=== PATIENT | female | born 1935 | race Caucasian/White ===

== ENCOUNTER 2017-05-05 05:38 | Inpatient (IN) ==
[2017-05-05] MEDS ORDERED: VANCOMYCIN INJ 1,000 MG in SODIUM CHLORIDE 0.9% 250 ML IV ONE (06:00)
--- NOTE | 2017-05-05 06:52 | History and Physical Update ---
History and Physical Update - History and Physical H&P was reviewed, the patient examined and there: are no changes in the patients condition since last H&P was completed.
[2017-05-05] MEDS ORDERED: SODIUM CHLORIDE 0.9% 100 ML IV ONE ×2 (06:54→11:13)
[2017-05-05] MEDS ORDERED: VANCOMYCIN 1,000 MG VIAL ONE (06:54)
[2017-05-05] MEDS ORDERED: ceFAZolin 1,000 MG VIAL ONE (06:54)
[2017-05-05] MEDS ORDERED: TRANEXAMIC ACID 1,000 MG/10 ML VIAL IV ONE (08:57)
[2017-05-05] MEDS ORDERED: LABETALOL 100 MG/20 ML VIAL IV ONE (09:00)
[2017-05-05] MEDS ORDERED: MORPHINE 10 MG/10 ML VIAL ONE (09:00)
[2017-05-05] MEDS ORDERED: PROPOFOL 200 MG/20 ML VIAL IV ONE (09:00)
[2017-05-05] MEDS ORDERED: ACETAMINOPHEN 1,000 MG/100 ML VIAL IV ONE (09:01)
[2017-05-05] MEDS: LACTATED RINGERS 1,000 ML IV SCH ×3 (09:29→11:19)
[2017-05-05] MEDS ORDERED: TEMAZEPAM 7.5 MG CAPSULE PO PRN (09:39)
[2017-05-05] MEDS ORDERED: PROMETHAZINE 25 MG/1 ML VIAL IM PRN (09:39)
[2017-05-05] MEDS ORDERED: diphenhydrAMINE CAP 25 MG CAPSULE PO PRN (09:39)
[2017-05-05] MEDS ORDERED: MAGNESIUM HYDROXIDE SUSP 30 ML UDCUP PO PRN (09:39)
[2017-05-05] MEDS ORDERED: BISACODYL 10 MG SUPP RECTAL PRN (09:39)
[2017-05-05] MEDS ORDERED: MORPHINE 2 MG/1 ML SYRINGE IV PRN ×2 (09:39→13:50)
[2017-05-05] MEDS ORDERED: ONDANSETRON 4 MG/2 ML VIAL IV PRN (09:39)
[2017-05-05] MEDS ORDERED: LACTULOSE 20 GM/30 ML UDCUP PO PRN (09:39)
[2017-05-05] MEDS ORDERED: NALOXONE 0.4 MG/ML VIAL IV PRN (09:39)
[2017-05-05] MEDS ORDERED: clonazePAM 0.5 MG TABLET PO PRN (09:42)
[2017-05-05] MEDS ORDERED: diphenhydrAMINE 50 MG/1 ML VIAL IV PRN (10:25)
[2017-05-05] MEDS ORDERED: hydrOXYzine HCL 25 MG/1 ML VIAL IM PRN (10:25)
--- NOTE | 2017-05-05 11:10 | Anesthesia Post-Op ---
Anesthesia Post OP - Post Ansesthetic Evaluation Patient seen in post op: Yes Resp: within normal limits CV: within normal limits Mental: within normal limits Temp: within normal limits [id number]: within normal limits Nausea and Vomiting: within normal limits Pain: within normal limits
[2017-05-05] MEDS ORDERED: fentaNYL 100 MCG/2 ML VIAL ONE (11:12)
[2017-05-05] MEDS ORDERED: MIDAZOLAM 2 MG/2 ML VIAL ONE (11:13)
[2017-05-05] MEDS ORDERED: LACTATED RINGERS 1,000 ML IV ONE (11:13)
--- NOTE | 2017-05-05 11:20 | XRay Report ---
XR hip OR LT Clinical Information: Left total hip arthroplasty Comparison: None available Findings: Post surgical changes of left total hip arthroplasty are noted. Hardware appears intact with no evidence of acute postsurgical complication. Minimal overlying soft tissue gas and soft tissue thickening appears appropriate for postsurgical state. No radiopaque foreign bodies are identified in the soft tissues. Impression: Postsurgical changes without evidence of acute complication. PROCEDURE INTERPRETED AT [facility] DEPARTMENT OF RADIOLOGY Final Report Signed by: Leif Valenzuela
[2017-05-05 13:31] LABS: Calcium 8.9 MG/DL (8.5-10.1); Osmolality,Calculated 285.1 MOS/KG (273-304); Potassium 4.9 MMOL/L (3.5-5.1)
[2017-05-05] MEDS: ceFAZolin 2,000 MG in PREMIX 1 EACH IV SCH ×2 (13:32→21:21)
[2017-05-05] MEDS: COENZYME Q10 100 MG CAPSULE PO SCH (14:01)
[2017-05-05] MEDS: MORPHINE PCA 30 MG/30 ML SYRINGE IV SCH (14:10)
--- NOTE | 2017-05-05 15:32 | Pulmonology Progress Note ---
Pulmonary - PN: Subj Interval history: Patient is an 81-year-old white lady that comes in today for a left total hip replacement. She has significant degenerative arthritis. She is previously had a right hip replacement and a right knee replacement. She is a former smoker and has had previous breast cancer. She has been doing reasonably well without any increased shortness of breath or chest pain. She did well today with anesthesia. She is complaining of some mild nausea and says she is hungry. Otherwise she seems to be doing fairly well. Exam (Progress Note) - Constitutional Vitals: Period Temp Pulse Resp BP Sys/Millan Pulse Ox Last 24 Hr 97.0 F-98.4 F 46-59 12-20 100-178/42-93 95-100 General appearance: normal weight, no acute distress - Head Head exam: Present: normal inspection, normocephalic - Eye Eye exam: Present: EOMI. Absent: scleral icterus Pupils: Present: RACHEL - ENT ENT exam: Present: normal exam - Neck Neck exam: Present: normal inspection. Absent: lymphadenopathy, thyromegaly - Respiratory Respiratory exam: Present: clear to auscultation bilaterally. Absent: wheezes - Cardiovascular Cardiovascular exam: Present: regular rate and rhythm. Absent: gallop, systolic murmur - GI/Abdominal GI/Abdominal exam: Present: normal bowel sounds, soft. Absent: distended, organomegaly, tenderness - Extremities Exam Extremities exam: Present: other (The left upper leg is wrapped.). Absent: edema - Neurological Exam Neurological exam: Present: alert, oriented X3, CN II-XII intact - Psychiatric Psychiatric exam: Present: normal affect, normal mood - Skin Skin exam: Present: warm, dry Results - Labs CBC & BMP: 05/05/17 12:48 Assessment and Plan (1) Osteoarthritis of left hip Status: Acute Assessment and plan: Patient has had significant arthritis and comes in for hip replacement today. Current Visit: Yes (2) Status post total hip replacement, left Status: Acute Assessment and plan: Patient did well with surgery today and is not having any problems postop. Current Visit: Yes (3) Hypertension Status: Acute Assessment and plan: Patient's blood pressures under control and she is stable from a cardiopulmonary standpoint. Current Visit: Yes
[2017-05-05] MEDS ORDERED: PANTOPRAZOLE 40 MG TABLET PO SCH (16:30)
--- NOTE | 2017-05-05 17:30 | Orthopedic Progress Note ---
Orthopedics - Subjective Interval history: Comfortable mild nausea discussed neurovascular intact up in a.m. Exam - Constitutional Vitals: Period Temp Pulse Resp BP Sys/Millan Pulse Ox Last 24 Hr 97.0 F-98.4 F 46-73 12-20 100-178/42-93 95-100 Results - Labs CBC & BMP: 05/05/17 12:48
--- NOTE | 2017-05-05 17:39 | Operative Note ---
DATE: 05/05/2017 PREOPERATIVE DIAGNOSIS: OSTEOARTHRITIS, LEFT HIP. POSTOPERATIVE DIAGNOSIS: OSTEOARTHRITIS, LEFT HIP. OPERATIVE PROCEDURE: Left total hip. SURGEON: Shane Williamson Jr, MD. FAMILY [employer] SOCIAL WORK PROFESSOR: Dr. Jade. ANESTHESIA: Spinal. INDICATIONS: An 81-year-old white female with severe osteoarthritis, left hip. She has maximized co nservative treatment through the years related to her pain and has become unresponsive. She has a pr evious history of right total hip, which she has done very well. She presents today for elective lef t total hip. PROCEDURE IN DETAIL: The patient brought to the operating room and under spinal anesthetic placed in right lateral decubitus position, left hip and lower extremity were prepped and draped in the usual sterile manner. She received Ancef and Vancomycin preoperatively. A curvilinear incision was made o kyree the posterolateral aspect of the left hip. Sharp dissection was carried down through the skin an d subcutaneous tissue. The IT band and gluteus were split. The short rotators and capsule were refl ected off the back of the proximal femur for later repair. The head dislocated and resected. The ac etabulum was exposed, sequentially reamed up to 51 and a 52 cup press fit in place, secured with a si ngle screw and a 10-degree all polyethylene liner placed. The proximal femur was prepared for the ce mented stem ultimately selecting a size #3 DePuy Dougherty cemented stem. Trials selected either a 1.5 or a 5 head. After removal of the trial femur, the permanent implant was cemented in place. After t he cement hardened, the trials were then reused ultimately selecting a +5 for it equalized limb lengt h and provided the best stability. Wounds were then irrigated, hip re-dislocated. The permanent +5 head secured on the taper and relocated. Intraoperative film confirmed satisfactory position of the components. The wound was then closed over two 1/8th-inch Hemovac drain in a standard fashion using #1 Vicryl for the posterior capsule and IT band layers, 2-0 Vicryl for the subcutaneous layer and sta ples for skin. Sterile dressing applied. She was rolled supine, abduction pillow placed, taken to r ecovery room in stable condition.
[2017-05-05] MEDS: TOLTERODINE LA 4 MG CAPSULE PO SCH (20:22)
[2017-05-05] MEDS: CARBIDOPA/LEVODOPA 25-100 MG TABLET PO SCH (20:22)
[2017-05-05] MEDS: ATORVASTATIN 10 MG TABLET PO SCH (20:22)
[2017-05-05] MEDS: DOCUSATE SODIUM 100 MG CAPSULE PO SCH (20:22)
[2017-05-06] MEDS: LACTATED RINGERS 1,000 ML IV SCH ×2 (05:34→12:40)
[2017-05-06 05:57] LABS: Basophils # 0.1 10*3/uL (0.0-0.2); Basophils % 0.8 % (0.0-0.8); Eosinophils # 0.2 10*3/uL (0.0-0.87); Eosinophils % 2.7 % (0.00-10.9); Hematocrit 36.1 VOL% (35.7-47.0); Hemoglobin 11.4 GM/DL (12.0-16.0); Immature Granulocytes % 0.3 %; Immature Granulocytes Absolute 0.02 #; Lymphocytes # 1.2 10*3/uL (1.4-4.0); Mean Corpuscular HGB Conc 31.6 GM/DL (32-36); Mean Corpuscular Hemoglobin 31 PG (27-34); Mean Corpuscular Volume 97.6 FL (87-102); Mean Platelet Volume 11.5 FL (9.6-12.0); Monocytes # 0.9 10*3/uL (0.11-0.8); Monocytes % 11.7 % (1.7-12.7); Neutrophils # 5.4 10*3/uL (1.4-7.4); Neutrophils % 69.5 % (38.7-73.9); Platelet Count 141 T/CUMM (130-400); Red Cell Distribution Width 13.1 % (9.3-17.3); White Blood Count 7.8 T/CUMM (4-12)
[2017-05-06 06:22] LABS: Osmolality,Calculated 282.3 MOS/KG (273-304); Potassium 4.3 MMOL/L (3.5-5.1)
--- NOTE | 2017-05-06 08:35 | Orthopedic Progress Note ---
Orthopedics - Subjective Interval history: Comfortable drain removed ready for PT H&H stable discharge planning for swing bed at [facility] Exam - Constitutional Vitals: Period Temp Pulse Resp BP Sys/Millan Pulse Ox Last 24 Hr 97.0 F-98.4 F 46-82 12-20 100-164/42-77 95-100 Results - Labs CBC & BMP: 05/06/17 05:23 05/06/17 05:23
[2017-05-06] MEDS: DOCUSATE SODIUM 100 MG CAPSULE PO SCH ×2 (10:28→21:35)
[2017-05-06] MEDS: MULTIVITAMIN (CENTRUM) TABLET PO SCH (10:29)
[2017-05-06] MEDS: hydroCHLOROthiazide 12.5 MG CAPSULE PO SCH (10:29)
[2017-05-06] MEDS: COENZYME Q10 100 MG CAPSULE PO SCH (10:29)
[2017-05-06] MEDS: ANASTROZOLE 1 MG TABLET PO SCH (10:30)
[2017-05-06] MEDS: TOLTERODINE LA 2 MG CAPSULE PO SCH (10:30)
[2017-05-06] MEDS: LISINOPRIL 20 MG TABLET PO SCH (10:31)
[2017-05-06] MEDS: OMEGA 3 ACID ETHYL ESTERS 1 GM CAPSULE PO SCH (10:31)
[2017-05-06] MEDS: MORPHINE PCA 30 MG/30 ML SYRINGE IV SCH (10:32)
--- NOTE | 2017-05-06 11:23 | Pathology Report from [facility] ---
[facility] [place] ACCESSION # : [id number] PATIENT NAME : Nicci Carty ORDERING DR : TERRY BARNES JR, MD CLINICAL HX: Left hip osteoarthritis POST-OP DX: Same SPECIMEN INFO: Left hip bone and tissue GROSS DESCRIPTION: The specimen is received in formalin labeled with the patients name and consists of a 4.2 x 4.3 cm x up to 5.3 cm femoral head. The articular surface is hyperemic pink-raines with an area of subchondral eburnation measuring up to 3.6 cm. The articular surfaces are focally degenerative with cartilaginous slipping. The cut surfaces are hemorrhagic, smooth with marked softening appreciated. Also in the container are multiple fragments of shaggy bone measuring up to 5.2 x 4.0 cm. Slate Trimmer sections submitted in one cassette following decalcification. DIAGNOSIS FOR NICCI CARTY: LEFT HIP BONE & TISSUE: Trabecular bone and normocellular marrow with gross and microscopic changes consistent with osteoarthritis. COLLECTED DATE: 05/05/2017 [facility] [place] REPORT DATE: 05/06/2017 ELECTRONICALLY SIGNED BY: Sam Solorzano III, M.D. 05/06/2017 - 10:16:49 UMBERTO
--- NOTE | 2017-05-06 11:52 | Pulmonology Progress Note ---
Pulmonary - PN: Subj Interval history: Patient is an 81-year-old white lady that comes in yesterday for a left total hip replacement. She has significant degenerative arthritis. She is previously had a right hip replacement and a right knee replacement. She is a former smoker and has had previous breast cancer. She has been doing reasonably well without any increased shortness of breath or chest pain. She did well today with anesthesia. Her nausea is better and she says she ate well. She says she had a fairly good night and is not hurting too badly. She is going to start physical therapy today. Exam (Progress Note) - Constitutional Vitals: Period Temp Pulse Resp BP Sys/Millan Pulse Ox Last 24 Hr 97.0 F-98.4 F 46-82 15-20 108-164/50-77 95-100 Exam: General appearance: normal weight, no acute distress, she looks comfortable today. - Head Head exam: Present: normal inspection, normocephalic - Eye Eye exam: Present: EOMI. Absent: scleral icterus Pupils: Present: RACHEL - ENT ENT exam: Present: normal exam - Neck Neck exam: Present: normal inspection. Absent: lymphadenopathy, thyromegaly - Respiratory Respiratory exam: Present: clear to auscultation bilaterally. She is moving air well. Absent: wheezes - Cardiovascular Cardiovascular exam: Present: regular rate and rhythm. Absent: gallop, systolic murmur - GI/Abdominal GI/Abdominal exam: Present: normal bowel sounds, soft. Absent: distended, organomegaly, tenderness - Extremities Exam Extremities exam: Present: other (The left upper leg is wrapped. She does not have any increased swelling or tenderness.). Absent: edema - Neurological Exam Neurological exam: Present: alert, oriented X3, CN II-XII intact - Psychiatric Psychiatric exam: Present: normal affect, normal mood - Skin Skin exam: Present: warm, dry Results - Labs CBC & BMP: 05/06/17 05:23 05/06/17 05:23 Assessment and Plan (1) Osteoarthritis of left hip Status: Acute Assessment and plan: Patient has had significant arthritis and comes in for hip replacement. Current Visit: Yes (2) Status post total hip replacement, left Status: Acute Assessment and plan: Patient did well with surgery and had a fairly good night. She will start physical therapy today. She is not having too much pain now. Overall she is doing well. Current Visit: Yes (3) Hypertension Status: Acute Assessment and plan: Patient's blood pressures under control and she is stable from a cardiopulmonary standpoint. She is not having any new medical problems. Current Visit: Yes
[2017-05-06] MEDS: FONDAPARINUX 2.5 MG/0.5 ML SYRINGE SUBCUT SCH (21:35)
[2017-05-06] MEDS: ATORVASTATIN 10 MG TABLET PO SCH (21:35)
[2017-05-06] MEDS: CARBIDOPA/LEVODOPA 25-100 MG TABLET PO SCH (21:36)
[2017-05-06] MEDS: TOLTERODINE LA 4 MG CAPSULE PO SCH (21:37)
[2017-05-07] MEDS: LACTATED RINGERS 1,000 ML IV SCH ×2 (00:06→21:34)
[2017-05-07 05:12] LABS: Basophils % 0.4 % (0.0-0.8); Eosinophils # 0.2 10*3/uL (0.0-0.87); Eosinophils % 2.6 % (0.00-10.9); Hematocrit 33.5 VOL% (35.7-47.0); Hemoglobin 10.7 GM/DL (12.0-16.0); Immature Granulocytes % 0.6 %; Immature Granulocytes Absolute 0.05 #; Lymphocytes # 1.2 10*3/uL (1.4-4.0); Lymphocytes % 14.9 % (21.3-54.2); Mean Corpuscular HGB Conc 31.9 GM/DL (32-36); Mean Corpuscular Hemoglobin 31 PG (27-34); Mean Corpuscular Volume 97.1 FL (87-102); Mean Platelet Volume 11.5 FL (9.6-12.0); Monocytes # 1.1 10*3/uL (0.11-0.8); Monocytes % 13.5 % (1.7-12.7); Neutrophils # 5.6 10*3/uL (1.4-7.4); Platelet Count 133 T/CUMM (130-400); Red Blood Count 3.45 MC/CUMM (3.8-5.5); Red Cell Distribution Width 13.2 % (9.3-17.3); White Blood Count 8.2 T/CUMM (4-12)
[2017-05-07 05:38] LABS: Band Neutrophils 1 % (0-10); Eosinophils 5 % (0-10); Hypochromasia 1+; Lymphocytes 13 % (20-55); Ovalocytes Slight; Platelet Estimate Normal; Segmented Neutrophils 66 % (50-85); Total Cells Counted 100
--- NOTE | 2017-05-07 07:54 | Orthopedic Progress Note ---
Orthopedics - Subjective Interval history: H&H stable progressing slowly with PT will need convalescence and rehab at [facility] bed this was discussed again today and agree hopefully that can be arranged by tomorrow Exam - Constitutional Vitals: Period Temp Pulse Resp BP Sys/Millan Pulse Ox Last 24 Hr 97.3 F-99.5 F 71-104 14-20 121-133/58-68 91-98 Results - Labs CBC & BMP: 05/07/17 04:49 05/06/17 05:23
--- NOTE | 2017-05-07 07:56 | Discharge Summary ---
Hospital Course - Hospital Course Hospital Course: Admitted for elective left total hip uncomplicated course discharged to [facility] bed Diagnosis - Discharge Diagnosis (1) Osteoarthritis of left hip Status: Acute Discharge Plan - Discharge Data Disposition: Swing Bed, Hos Based, [facility] Condition at Discharge: Stable Discharge Diet: advance to your usual diet Activity: ambulate only with your walker, as per physical therapy, increase activity as tolerated Hygiene: may shower, keep area(s) dry Weight Bearing at Discharge: weight bear as tolerated (With hip precautions) Driving: not until seen by doctor - Discharge Medications New HYDROcodone/ACETAMIN 7.5-325 [[place] 7.5-325] 2 tablet PO Q4H PRN #30 tablet PRN Reason: Moderate Pain unrelieved by 1 Fondaparinux [Arixtra] 2.5 mg SUBCUT Q24H syringe Continue Multivitamin (Centrum) [Centrum Tab] 1 tablet PO DAILY Anastrozole [Arimidex] 1 mg PO DAILY hydroCHLOROthiazide [Hydrochlorothiazide] 12.5 mg PO DAILY Lisinopril 20 mg PO DAILY Atorvastatin [Lipitor] 10 mg PO BEDTIME clonazePAM TAB [KlonoPIN] 0.5 mg PO BEDTIME PRN PRN Reason: Restlessness Ubidecarenone/Vit E Acet [Co Q-10 100 mg Softgel] 1 each PO DAILY Tolterodine LA [Detrol LA] 4 mg PO BEDTIME [place]-3/Dha/Epa/Fish Oil [Fish Oil 1,000 mg Softgel] 1 each PO BID Vit C/Vit E AC/Lut/Copper/Zinc [Preservision Lutein Softgel] 1 capsule PO BID Glucosamine/D3/Boswellia Mirian [Osteo Bi-Flex Tablet] 1 tablet PO BID Tolterodine LA [Detrol LA] 2 mg PO QAM Pantoprazole Tab [Protonix Tab] 40 mg PO BID W/MEALS Calcium (Citrate) [Citracal] 200 mg PO BID - Follow Up or Referral - Forms/Instructions Additional Discharge Instructions: Discharge to swing bed continue home medications [place] for pain continue Arixtra for 10 days more and then switched to enteric-coated aspirin once a day vance to be removed and wound Steri- Stripped May 18. Weightbearing as tolerated with hip precautions. Follow-up 4 weeks Exam - Constitutional Vitals: Period Temp Pulse Resp BP Sys/Millan Pulse Ox Last 24 Hr 97.3 F-99.5 F 71-104 14-20 121-133/58-68 91-98 Discharge Results Procedures and tests throughout hospitalization: Pending Orders 05/08/17 04:00 Comp Blood Count Auto Diff IN AM Labs on day of discharge: Labs from last 24 hours 05/07/17 04:49 WBC 8.2 RBC 3.45 L Hgb 10.7 L Hct 33.5 L MCV 97.1 MCH 31 MCHC 31.9 L RDW 13.2 Plt Count 133 MPV 11.5 Neut % (Auto) 68.0 Lymph % (Auto) 14.9 L Cecil % (Auto) 13.5 H Eos % (Auto) 2.6 Baso % (Auto) 0.4 Neut # (Auto) 5.6 Lymph # (Auto) 1.2 L Cecil # (Auto) 1.1 H Eos # (Auto) 0.2 Baso # (Auto) 0.0 Total Counted 100 Immature Gran % 0.6 Nucleated RBC % 0.0 Immature Gran # 0.05 Segmented Neutrophils 66 Band Neutrophils 1 Lymphocytes 13 L Monocytes 15 Eosinophils 5 Nucleated RBCs # 0.00 Platelet Estimate Normal Hypochromasia 1+ Ovalocytes Slight DS: Provider Date of admission: 05/05/17 05:38 Primary care physician: Nonstaff Physician Attending physician on admission: Shane Williamson Jr., MD Consults: 05/05/17 09:39 Consult to Case Mgmt/Social Srvs [CONS] Routine Reason for Case Mgmt/Social Srvs: Rehab Home Health Equipment Consult Comment: Bedside Commode, CPM, Walker Consult to Occupational Therapy [CONS] Routine Reason for Occupational Therapy: Evaluate and Treat Consult Comment: ADL's Consult to Physical Therapy [CONS] Routine Reason for Physical Therapy: Evaluate and Treat Gait Training 05/05/17 09:42 Consult to Physician [CONS] Routine Comment: Consulting Provider: Jasen Tipton Consulting Provider Notified: Yes When should Consulting Provider be notified: Now Person Notified: maria g craig Date Notified: 05/05/17 Time Notified: 13:11 Discharging clinician: Shane Williamson Jr., MD
[2017-05-07] MEDS: LISINOPRIL 20 MG TABLET PO SCH (08:27)
[2017-05-07] MEDS: OMEGA 3 ACID ETHYL ESTERS 1 GM CAPSULE PO SCH (08:27)
[2017-05-07] MEDS: hydroCHLOROthiazide 12.5 MG CAPSULE PO SCH (08:27)
[2017-05-07] MEDS: PANTOPRAZOLE 40 MG TABLET PO SCH ×2 (08:27→08:28)
[2017-05-07] MEDS: ANASTROZOLE 1 MG TABLET PO SCH (08:27)
[2017-05-07] MEDS: MULTIVITAMIN (CENTRUM) TABLET PO SCH (08:27)
[2017-05-07] MEDS: DOCUSATE SODIUM 100 MG CAPSULE PO SCH ×2 (08:27→20:22)
[2017-05-07] MEDS: TOLTERODINE LA 2 MG CAPSULE PO SCH (08:27)
[2017-05-07] MEDS: COENZYME Q10 100 MG CAPSULE PO SCH (08:27)
--- NOTE | 2017-05-07 09:03 | Pulmonology Progress Note ---
Pulmonary - PN: Subj Interval history: Patient is an 81-year-old white lady that comes in yesterday for a left total hip replacement. She has significant degenerative arthritis. She is previously had a right hip replacement and a right knee replacement. She is a former smoker and has had previous breast cancer. She has been doing reasonably well without any increased shortness of breath or chest pain. She did well today with anesthesia. She had a good day yesterday and did not do some physical therapy. She is taking pain pills and she says her hip feels better. She had a fairly good night and is not having any respiratory distress. She has not had a bowel movement yet. She will continue physical therapy today. Exam (Progress Note) - Constitutional Vitals: Period Temp Pulse Resp BP Sys/Millan Pulse Ox Last 24 Hr 97.3 F-99.5 F 71-104 14-20 121-133/58-68 91-98 Exam: General appearance: normal weight, no acute distress, she looks comfortable today. - Head Head exam: Present: normal inspection, normocephalic - Eye Eye exam: Present: EOMI. Absent: scleral icterus Pupils: Present: RACHEL - ENT ENT exam: Present: normal exam - Neck Neck exam: Present: normal inspection. Absent: lymphadenopathy, thyromegaly - Respiratory Respiratory exam: Present: clear to auscultation bilaterally. She is moving air well. Absent: wheezes - Cardiovascular Cardiovascular exam: Present: regular rate and rhythm. Absent: gallop, systolic murmur - GI/Abdominal GI/Abdominal exam: Present: normal bowel sounds, soft. Absent: distended, organomegaly, tenderness - Extremities Exam Extremities exam: Present: other (The left upper leg is wrapped. She does not have any increased swelling or tenderness.). Absent: edema - Neurological Exam Neurological exam: Present: alert, oriented X3, CN II-XII intact, she is moving her extremities well. - Psychiatric Psychiatric exam: Present: normal affect, normal mood - Skin Skin exam: Present: warm, dry Results - Labs CBC & BMP: 05/07/17 04:49 05/06/17 05:23 Assessment and Plan (1) Osteoarthritis of left hip Status: Acute Assessment and plan: Patient has had significant arthritis and comes in for hip replacement. She did well with surgery and is increasing her physical therapy. Current Visit: Yes (2) Status post total hip replacement, left Status: Acute Assessment and plan: Patient did well with surgery and had a fairly good night. She has been up and moving around better. Her pain seems to be under control. Overall she is doing well. She will probably go to a swing bed soon. Current Visit: Yes (3) Hypertension Status: Acute Assessment and plan: Patient's blood pressures under control and she is stable from a cardiopulmonary standpoint. She is not having any new medical problems. Current Visit: Yes
[2017-05-07] MEDS: MORPHINE PCA 30 MG/30 ML SYRINGE IV SCH (09:32)
[2017-05-07] MEDS: TOLTERODINE LA 4 MG CAPSULE PO SCH (20:22)
[2017-05-07] MEDS: CARBIDOPA/LEVODOPA 25-100 MG TABLET PO SCH (20:22)
[2017-05-07] MEDS: ATORVASTATIN 10 MG TABLET PO SCH (20:22)
[2017-05-07] MEDS: FONDAPARINUX 2.5 MG/0.5 ML SYRINGE SUBCUT SCH (20:23)
--- NOTE | 2017-05-08 08:19 | Orthopedic Progress Note ---
Orthopedics - Subjective Interval history: Ms Carty is comfortable. She walked a short distance in the [place] yesterday. Dressing is clean, dry and intact. Left lower extremities neurovascularly intact. Plan: Discharge to swing bed per Dr. Clay Boo's instructions. Exam - Constitutional Vitals: Period Temp Pulse Resp BP Sys/Millan Pulse Ox Last 24 Hr 97.2 F-99.3 F 80-107 16-20 111-148/54-70 91-99 Results - Labs CBC & BMP: 05/07/17 04:49 05/06/17 05:23 Specialty Discharge - Follow Up or Referrals Follow up with: Shane Williamson Jr., MD [Physician] - (4 weeks)
[2017-05-08] MEDS: TOLTERODINE LA 2 MG CAPSULE PO SCH (08:38)
[2017-05-08] MEDS: OMEGA 3 ACID ETHYL ESTERS 1 GM CAPSULE PO SCH (08:38)
[2017-05-08] MEDS: ANASTROZOLE 1 MG TABLET PO SCH (08:38)
[2017-05-08] MEDS: MULTIVITAMIN (CENTRUM) TABLET PO SCH (08:38)
[2017-05-08] MEDS: COENZYME Q10 100 MG CAPSULE PO SCH (08:38)
[2017-05-08] MEDS: DOCUSATE SODIUM 100 MG CAPSULE PO SCH (08:39)
[2017-05-08] MEDS: PANTOPRAZOLE 40 MG TABLET PO SCH (08:39)
[2017-05-08] MEDS: hydroCHLOROthiazide 12.5 MG CAPSULE PO SCH (08:39)
[2017-05-08] MEDS: LISINOPRIL 20 MG TABLET PO SCH (08:39)
--- NOTE | 2017-05-08 08:43 | Pulmonology Progress Note ---
Pulmonary - PN: Subj Interval history: Patient is an 81-year-old white lady that comes in yesterday for a left total hip replacement. She has significant degenerative arthritis. She is previously had a right hip replacement and a right knee replacement. She is a former smoker and has had previous breast cancer. She has been doing reasonably well without any increased shortness of breath or chest pain. She did well today with anesthesia. She is sitting up this morning and feels much better. She says her hip is doing well. She is doing fairly well with physical therapy. She is not having any new problems. She is going to a swing bed in [place] today. Exam (Progress Note) - Constitutional Vitals: Period Temp Pulse Resp BP Sys/Millan Pulse Ox Last 24 Hr 97.2 F-99.3 F 80-107 16-20 111-148/54-70 91-99 Exam: General appearance: normal weight, no acute distress, she looks comfortable today. She is sitting up in a chair. - Head Head exam: Present: normal inspection, normocephalic - Eye Eye exam: Present: EOMI. Absent: scleral icterus Pupils: Present: RACHEL - ENT ENT exam: Present: normal exam - Neck Neck exam: Present: normal inspection. Absent: lymphadenopathy, thyromegaly - Respiratory Respiratory exam: Present: clear to auscultation bilaterally. She is moving air well. Absent: wheezes - Cardiovascular Cardiovascular exam: Present: regular rate and rhythm. Absent: gallop, systolic murmur - GI/Abdominal GI/Abdominal exam: Present: normal bowel sounds, soft. Absent: distended, organomegaly, tenderness - Extremities Exam Extremities exam: Present: other (The left upper leg is wrapped. She does not have any increased swelling or tenderness.). Absent: edema - Neurological Exam Neurological exam: Present: alert, oriented X3, CN II-XII intact, she is moving her extremities well. - Psychiatric Psychiatric exam: Present: normal affect, normal mood - Skin Skin exam: Present: warm, dry Results - Labs CBC & BMP: 05/07/17 04:49 05/06/17 05:23 Assessment and Plan (1) Osteoarthritis of left hip Status: Acute Assessment and plan: Patient has had significant arthritis and comes in for hip replacement. She did well with surgery and is increasing her physical therapy. Her leg pain is better and she seems to be getting around better now. Current Visit: Yes (2) Status post total hip replacement, left Status: Acute Assessment and plan: Patient did well with surgery and had a fairly good night. She is sitting up more and doing more with physical therapy. She is quite stable and will go to a swing bed soon. Current Visit: Yes (3) Hypertension Status: Acute Assessment and plan: Patient's blood pressures under control and she is stable from a cardiopulmonary standpoint. She is not having any new medical problems. Current Visit: Yes Specialty Discharge - Follow Up or Referrals Follow up with: Shane Williamson Jr., MD [Physician] - (4 weeks)
[2017-05-08] MEDS: MORPHINE PCA 30 MG/30 ML SYRINGE IV SCH (09:11)
[2017-05-08 11:26] VITALS: BP 131/62
== END 2017-05-08 13:46 | disposition swing bed (61) | DRG 470 ==
LOC: N.SDSINP 05:38 → N.3E 09:47
PROVIDERS: ADMIT Orthopaedic Surgery; ATTEND Orthopaedic Surgery

== ENCOUNTER 2018-07-26 11:47 | Observation (INO) ==
[2018-07-26 12:31] LABS: Basophils # 0.1 10*3/uL (0.0-0.2); Basophils % 1.2 % (0.0-0.8); Eosinophils # 0.3 10*3/uL (0.0-0.87); Eosinophils % 4.9 % (0.00-10.9); Hematocrit 43.8 VOL% (35.7-47.0); Hemoglobin 13.6 GM/DL (12.0-16.0); Immature Granulocytes % 0.5 %; Immature Granulocytes Absolute 0.03 #; Lymphocytes # 1.3 10*3/uL (1.4-4.0); Lymphocytes % 22.3 % (21.3-54.2); Mean Corpuscular HGB Conc 31.1 GM/DL (32-36); Mean Corpuscular Hemoglobin 30 PG (27-34); Mean Corpuscular Volume 96.1 FL (87-102); Mean Platelet Volume 11.3 FL (9.6-12.0); Monocytes # 0.6 10*3/uL (0.11-0.8); Monocytes % 10.6 % (1.7-12.7); Neutrophils # 3.6 10*3/uL (1.4-7.4); Neutrophils % 60.5 % (38.7-73.9); Platelet Count 238 T/CUMM (130-400); Red Blood Count 4.56 MC/CUMM (3.8-5.5); Red Cell Distribution Width 13.1 % (9.3-17.3); White Blood Count 5.9 T/CUMM (4-12)
[2018-07-26 12:48] LABS: PT Patient Result 10.3 SECS; Partial Thromboplastin Time 32.7 SECS (0-40)
[2018-07-26 13:08] LABS: Albumin 3.6 G/DL (3.4-5.0); Bilirubin,Total 0.5 MG/DL (0.2-1.0); Calcium 9.1 MG/DL (8.5-10.1); Potassium 4.1 MMOL/L (3.5-5.1); Total Protein 7.4 G/DL (6.4-8.3)
[2018-07-26] MEDS ORDERED: MECLIZINE 25 MG TABLET PO STA (13:31)
[2018-07-26] MEDS ORDERED: SODIUM CHLORIDE 0.9% 500 ML IV STA (13:31)
[2018-07-26] MEDS ORDERED: DOCUSATE SODIUM 100 MG CAPSULE PO PRN (14:27)
[2018-07-26] MEDS ORDERED: ACETAMINOPHEN 325 MG TABLET PO PRN (14:27)
[2018-07-26] MEDS ORDERED: ONDANSETRON 4 MG/2 ML VIAL IV PRN (14:27)
[2018-07-26 14:35] LABS: Apearance,Urine CLEAR (Clear); Bacteria,Urine Occasional /HPF (Few); Bilirubin,Urine Negative (Negative); Blood, Urine Negative (Negative); Glucose,Urine (UA) Negative (Negative); Ketones,Urine Negative (Negative); Mucus,Urine Occasional /LPF (Occasional); Nitrite,Urine Negative (Negative); Protein,Urine Negative; RBC,Urine <1 /HPF (0-4); Squamous Epithelial Cell,Urine Occasional /HPF (0-10); Urine Color Yellow (Yellow); Urine Specific Gravity 1.008 (1.001-1.035); Urine Urobilinogen < 2.0 EU/DL (0.2-1.0); WBC,Urine <1 /HPF (0-6)
[2018-07-26] MEDS ORDERED: ONDANSETRON ODT 4 MG TABLET PO PRN (14:37)
[2018-07-26] MEDS ORDERED: CLONIDINE 0.1 MG PO SCH (14:45)
[2018-07-26] MEDS ORDERED: amLODIPine 2.5 MG TABLET PO SCH (21:00)
[2018-07-26] MEDS: CALCIUM (CITRATE) 200 MG TABLET PO SCH (21:22)
[2018-07-26] MEDS: APIXABAN 5 MG TABLET PO SCH (21:22)
[2018-07-26] MEDS: ATORVASTATIN 10 MG TABLET PO SCH (21:22)
[2018-07-26] MEDS: clonazePAM 0.5 MG TABLET PO PRN (21:25)
[2018-07-27 05:47] LABS: Albumin 3.2 G/DL (3.4-5.0); Bilirubin,Total 0.8 MG/DL (0.2-1.0); Calcium 9.6 MG/DL (8.5-10.1); Osmolality,Calculated 283.3 MOS/KG (273-304); Potassium 4.4 MMOL/L (3.5-5.1); Risk Ratio 3.98; Thyroid Stimulating Hormone 2.94 uIU/ml (0.358-3.74); Total Protein 7.4 G/DL (6.4-8.3); VLDL CHOLESTEROL 24.4 MG/DL
[2018-07-27 07:08] LABS: Basophils # 0.1 10*3/uL (0.0-0.2); Eosinophils # 0.5 10*3/uL (0.0-0.87); Eosinophils % 7.1 % (0.00-10.9); Hemoglobin 13.5 GM/DL (12.0-16.0); Immature Granulocytes % 0.3 %; Immature Granulocytes Absolute 0.02 #; Lymphocytes # 2.1 10*3/uL (1.4-4.0); Lymphocytes % 32.6 % (21.3-54.2); Mean Corpuscular HGB Conc 31.4 GM/DL (32-36); Mean Corpuscular Hemoglobin 30 PG (27-34); Mean Corpuscular Volume 96.4 FL (87-102); Mean Platelet Volume 11.9 FL (9.6-12.0); Monocytes # 0.7 10*3/uL (0.11-0.8); Monocytes % 10.9 % (1.7-12.7); Neutrophils % 48.1 % (38.7-73.9); Platelet Count 224 T/CUMM (130-400); Red Blood Count 4.46 MC/CUMM (3.8-5.5); Red Cell Distribution Width 13.2 % (9.3-17.3); White Blood Count 6.3 T/CUMM (4-12)
[2018-07-27] MEDS: PANTOPRAZOLE 40 MG TABLET PO SCH (08:42)
[2018-07-27] MEDS: hydroCHLOROthiazide 12.5 MG CAPSULE PO SCH (08:42)
[2018-07-27] MEDS: CALCIUM (CITRATE) 200 MG TABLET PO SCH ×2 (08:43→22:11)
[2018-07-27] MEDS: APIXABAN 5 MG TABLET PO SCH ×2 (08:43→22:10)
[2018-07-27] MEDS: LOSARTAN 50 MG TABLET PO SCH (08:43)
[2018-07-27] MEDS: ASPIRIN EC 81 MG TABLET PO SCH (08:43)
[2018-07-27] MEDS ORDERED: PANTOPRAZOLE 40 MG TABLET PO SCH (09:00)
[2018-07-27] MEDS: METOPROLOL TARTRATE 25 MG TABLET PO SCH ×2 (10:33→21:00)
[2018-07-27] MEDS ORDERED: TOLTERODINE LA 4 MG CAPSULE PO SCH (22:00)
[2018-07-27] MEDS: ATORVASTATIN 10 MG TABLET PO SCH (22:09)
[2018-07-27] MEDS: clonazePAM 0.5 MG TABLET PO PRN (22:09)
[2018-07-28 04:27] LABS: Basophils # 0.1 10*3/uL (0.0-0.2); Basophils % 1.3 % (0.0-0.8); Eosinophils # 0.4 10*3/uL (0.0-0.87); Eosinophils % 7.7 % (0.00-10.9); Hematocrit 38.5 VOL% (35.7-47.0); Hemoglobin 12.3 GM/DL (12.0-16.0); Immature Granulocytes % 0.4 %; Immature Granulocytes Absolute 0.02 #; Lymphocytes % 35.4 % (21.3-54.2); Mean Corpuscular HGB Conc 31.9 GM/DL (32-36); Mean Corpuscular Hemoglobin 31 PG (27-34); Mean Corpuscular Volume 95.8 FL (87-102); Mean Platelet Volume 11.4 FL (9.6-12.0); Monocytes # 0.6 10*3/uL (0.11-0.8); Monocytes % 11.1 % (1.7-12.7); Neutrophils # 2.5 10*3/uL (1.4-7.4); Neutrophils % 44.1 % (38.7-73.9); Platelet Count 218 T/CUMM (130-400); Red Blood Count 4.02 MC/CUMM (3.8-5.5); Red Cell Distribution Width 13.1 % (9.3-17.3); White Blood Count 5.6 T/CUMM (4-12)
[2018-07-28 04:57] LABS: Calcium 9.1 MG/DL (8.5-10.1); Osmolality,Calculated 283.3 MOS/KG (273-304); Potassium 3.9 MMOL/L (3.5-5.1)
[2018-07-28] MEDS: METOPROLOL TARTRATE 25 MG TABLET PO SCH (09:50)
[2018-07-28 11:06] VITALS: BP 134/61
[2018-07-28] MEDS: ASPIRIN EC 81 MG TABLET PO SCH (14:14)
[2018-07-28] MEDS: CALCIUM (CITRATE) 200 MG TABLET PO SCH (14:14)
[2018-07-28] MEDS: APIXABAN 5 MG TABLET PO SCH (14:14)
[2018-07-28] MEDS: hydroCHLOROthiazide 12.5 MG CAPSULE PO SCH (14:14)
[2018-07-28] MEDS: LOSARTAN 50 MG TABLET PO SCH (14:14)
[2018-07-28] MEDS: PANTOPRAZOLE 40 MG TABLET PO SCH (14:14)
== END 2018-07-28 15:06 | disposition home or self-care (01) ==
LOC: N.ED 11:47 → N.EDINP 11:47 → SUATTDRO 14:27 → N.TELEN 15:42
PROVIDERS: ADMIT Physician Assistant; ATTEND Internal Medicine